=== PATIENT | female | born 1970 | race Caucasian/White ===

== ENCOUNTER 2017-10-20 07:32 | Emergency (ER) | payer OTHER ==
--- NOTE | 2017-10-20 08:51 | ED ---
Respiratory - HPI Summary HPI Summary: 46 yr old female with the complaint of dysuria, frequency, urgency of urination. Onset last evening. she feels she has a UTI. She has an IUD. Denies abdominal and back pain. No other complaints. - History of Current Complaint Chief Complaint: [facility]CGU Stated Complaint: URINARY COMPLAINT Time Seen by Provider: 10/20/17 08:24 Pain Intensity: 0 - Allergy/Home Medications Allergies/Adverse Reactions: Allergies Allergy/AdvReac Type Severity Reaction Status Date / Time bacitracin Allergy Rash Verified 10/20/17 08:14 Penicillins Allergy Unknown Verified 10/20/17 08:14 Reaction Details Sulfa (Sulfonamide Allergy Rash Verified 10/20/17 08:14 Antibiotics) Home Medications: Home Medications Ascorbic Acid TAB* [Vitamin C TAB*] 500 mg PO DAILY 10/20/17 [History Confirmed 10/20/17] Calcium 600mg 1 tab PO DAILY 10/20/17 [History Confirmed 10/20/17] Diclofenac Sodium EC TAB* [Voltaren EC TAB*] 75 mg PO DAILY 10/20/17 [History Confirmed 10/20/17] Etanercept [Enbrel] 50 mg SQ WEEKLY 10/20/17 [History Confirmed 10/20/17] Multivitamins/Minerals TAB* [Theragran/minerals TAB*] 1 tab PO DAILY 10/20/17 [ History Confirmed 10/20/17] Omeprazole CAP* [Prilosec CAP* 20 MG] 10 mg PO 1700 10/20/17 [History Confirmed 10/20/17] PMH/Surg Hx/FS Hx/Imm Hx - Surgical History Surgery Procedure, Year, and Place: breast reduction; lymph nodes removed Infectious Disease History: Yes Infectious Disease History: Denies: Traveled Outside the [place] in Last 30 Days - Family History Known Family History: Positive: None - Social History Lives: With Family Alcohol Use: Rare Substance Use Type: Reports: None Smoking Status (MU): Former Smoker Review of Systems Constitutional: Negative Eyes: Negative Negative: Abdominal Pain, Vomiting, Nausea Positive: dysuria, frequency, urgency. Negative: flank pain, hematuria, incontinence All Other Systems Reviewed And Are Negative: Yes Physical Exam Triage Information Reviewed: Yes Vital Signs On Initial Exam: Initial Vitals Temp Pulse Resp BP Pulse Ox 98.7 F 77 18 133/85 99 10/20/17 08:05 10/20/17 08:05 04/16/18 08:05 10/20/17 08:05 10/20/17 08:05 Vital Signs Reviewed: Yes Appearance: Positive: Well-Appearing, No Pain Distress Skin: Positive: Warm, Skin Color Reflects Adequate Perfusion Head/Face: Positive: Normal Head/Face Inspection Eyes: Positive: EOMI ENT: Positive: Normal ENT inspection Neck: Positive: Nontender Respiratory/Lung Sounds: Positive: Clear to Auscultation, Breath Sounds Present Cardiovascular: Positive: RRR. Negative: Murmur Abdomen Description: Negative: CVA Tenderness (R), CVA Tenderness (L) Musculoskeletal: Positive: Strength/ROM Intact Neurological: Positive: Sensory/Motor Intact, Alert, Oriented to Person Place, Time, CN Intact II-III Psychiatric: Positive: Normal - Earnest Coma Scale Best Eye Response: 4 - Spontaneous Best Motor Response: 6 - Obeys Commands Best Verbal Response: 5 - Oriented Coma Scale Total: 15 Diagnostics - Vital Signs Vital Signs Temp Pulse Resp BP Pulse Ox 10/20/17 08:05 98.7 F 77 18 133/85 99 - Laboratory Lab Statement: Any lab studies that have been ordered have been reviewed, and results considered in the medical decision making process. Disposition - Course Course Of Treatment: 46 yr old with urinary symptoms. - Differential Dx - Cardiopulmonary Differential Diagnoses - Cardiopulmonary: Acute Coronary - Diagnoses Provider Diagnoses: UTI (urinary tract infection) Discharge - Sign-Out/Discharge Documenting (check all that apply): Discharge - Discharge Plan Condition: Good Disposition: HOME Prescriptions: Nitrofurantoin Macrocrystals* [Macrodantin*] 100 mg PO BID #10 cap Patient Education Materials: Urinary Tract Infection in Women (ED) Referrals: Shameka Magana MD [Primary Care Provider] - - Billing Disposition and Condition Condition: GOOD Disposition: HOME
== END 2017-10-20 09:17 | disposition home or self-care (01) ==
LOC: UCCORT 07:32
DX: N39.0 Urinary tract infection, site not specified (principal); Z87.891 Personal history of nicotine dependence; Z88.0 Allergy status to penicillin; Z88.3 Allergy status to other anti-infective agents; Z88.2 Allergy status to sulfonamides
CPT/HCPCS: 81003; 87077; 87086; 87186; 99202; G0463

== ENCOUNTER 2018-10-06 07:36 | Emergency (ER) | payer OTHER ==
--- OUTSIDE RECORDS SUMMARY | 2018-10-06 07:49 | XMS REPORT | Continuity of Care Document ---
:1970 Author Organization [facility] Address [address], [place] [id number] Phone Care Team Providers Name Role Phone Anu Ballesteros Unavailable Unavailable Allergies, Adverse Reactions, Alerts Substance Reaction Status Penicillins Active Sulfa (Sulfonamide Antibiotics) Active Medications Medication Instructions Dosage Effective Dates Status Comments (start - stop) DICLOFENAC SOD EC TAKE ONE TABLET BY 75 MG - Active 75 MG TAB MOUTH EVERY DAY NEEDED ENBREL 50 MG/ML INJECT 50MG - Active SURECLICK SYR SUBCUTANEOUSLY ONCE A WEEK trazodone 50 mg take 0.5 Tablet 25 MG - Active tablet (25MG) by oral route every day at bedtime Prilosec 10 mg Cap take 1 Capsule (10MG) 10 MG - Active by oral route every day before a meal UNKNOWN MEDICATION IUD - Active multivitamin Tab take 1 tablet by oral - Active route every day with food calcium 500 mg Tab take by Oral route 2 - Active times every day OTC SUPPLEMENTS Vitamin C - Active diclofenac sodium take 1 tablet by oral 75 MG - No Longer 75 mg route every day prn Active tablet,delayed release Problems Condition Effective Dates (start Clinical Status Comments - stop) Other psoriatic arthropathy Psoriasis, unspecified Other rn long term care (current) drug therapy Other psoriatic arthropathy Psoriasis, unspecified Other rn long term care (current) drug therapy Other psoriatic arthropathy Psoriasis Other [facility] (current) drug therapy Other psoriatic arthropathy Psoriasis Other [facility] (current) drug therapy Other psoriatic arthropathy Other [facility] (current) drug therapy Other psoriatic arthropathy Psoriasis Other [facility] (current) drug therapy Other psoriatic arthropathy Psoriasis Other [facility] (current) drug therapy Other psoriatic arthropathy Psoriasis Other rn long term care (current) drug therapy Other psoriatic arthropathy Psoriasis Other [facility] (current) drug therapy Other psoriatic arthropathy Psoriasis Other rn long term care (current) drug therapy Other psoriatic arthropathy Psoriasis Other rn long term care (current) drug therapy Other psoriatic arthropathy Psoriasis Other rn long term care (current) drug therapy Other psoriatic arthropathy Psoriasis Other [facility] (current) drug therapy Other psoriatic arthropathy Other rn long term care (current) drug therapy High risk drug - Active Mapped from [facility] Chronic monitoring status Conditions table on 11/14/2014 by the ICD9 to SNOMED Bulk Mapping Utility. The mapped diagnosis code was Therapeutic Drug Monitoring, V58.69, added by Justyna Jiménez NP, with responsible provider Justyna TAPIA. Onset date 07/20/2012; last addressed on 03/21/2014. Psoriasis with - Active Mapped from [facility] Chronic arthropathy Conditions table on 09/13/2014 by the ICD9 to SNOMED Bulk Mapping Utility. The mapped diagnosis code was Psoriatic arthritis, 696.0, added by Justyna Jiménez NP, with responsible provider Justyna TAPIA. Onset date 04/24/2012; last addressed on 03/21/2014. Procedures Procedure Date No information Results Test Name Date and Time Measure Units Reference Range Abnormal Flag Status Comments No information Advance Directives Directive Yes / No Effective Date File Name No information Encounters Encounter Practice Location Reason(s) Diagnoses Date Provider Providers Description For Visit Copied on Encounter [facility]thritis Ar[facility] 2- rebeka Brennan. Jessica Lopez 9 5794 PLLC, 5794 PLLC [facility], [place], [place], [id number], [id number], [place]. [place] tel:[phone] tel:[phone] Arthritis Arthritis Other [facility] psoriatic 9 rebeka Brennan. Provider: Jessica Lopez arthropathyPso 8 5794 [facility], 5794 PLL[facility] Vinod quiñones MD, [facility], [address] [place] [address], er [facility] [place], [address] [place], (current) drug [place], [address], [place], therapy [id number], [place], [id number], [place], [address]. [place] tel:+[phone] tel:+3154 tel:[phone] [id number] lting Provider: Alicia Mills MD, [address] [place] [address], [address]. tel:[phone] ring Provider: Clyde Muhammad, [address] [place], [address]. tel:[phone] Arthritis Arthritis Oct-2 [facility] 3 rebekadaryl Brennan. Jessica Lopez 8 5794 PLLC, 5794 PLLC [facility], [place], [place], [place], [id number], [id number], [place]. [place] tel:[phone] tel:[phone] Arthritis Arthritis Other Sep-2 [facility] psoriatic rebekadaryl Brennan. Provider: Jessica Lopez arthropathyPso 8 5794 [facility], 5794 PLL[facility] Vinod quiñones MD, [facility], [address] [place] [address], er rn long term care [place], [address] [place], (current) drug [place], [address], [place], [place] [id number], [place], [id number], [place], [address]. [place] tel:+[phone] tel:+[phone] tel:[phone] [id number] lting Provider: Alicia Mills MD, [address] [place] [address], [address]. tel:[phone] ring Provider: Clyde Muhammad, [address] [place], [address]. tel:[phone] Arthritis Arthritis Other Danish-1 [facility] psoriatic rebekadaryl Brennan. Provider: Jessica Lopez arthropathyPso 8 5794 [facility], 5794 PLLC Kristy Wilde MD, [facility], [address] [place] [address], (current) drug [place], [address] [place], therapy [place], [address], [place], [id number], [place], [id number], [place], [address]. [place] tel:+[phone] tel:+ tel:[phone] [id number] lting Provider: Alicia Mills MD, [address] [place] [address], [place], [address]. tel:[phone] ring Provider: Clyde Muhammad, [address] [place], [address]. tel:[phone] Arthritis Arthritis Other Mar-1 [facility] psoriatic 9 rebekadaryl Brennan. Provider: Jessica Lopez arthropathyPso 8 5794 [facility], 5794 PLLC [facility] Vinod Wilde MD, [facility], [address] [place] [address], (current) drug [place], [address] [place], therapy [place], [address], [place], [id number], [place], [id number], [place], [address]. [place] tel:+[phone] tel:+315 tel:[phone] [id number] lting Provider: Alicia Mills MD, [address] [place] [address], [address]. tel:[phone] ring Provider: Clyde Muhammad, [address] [place], [address]. tel:[phone] Arthritis Arthritis Other Dec-1 [facility] psoriatic rebekadaryl Brennan. Provider: Jessica Lopez arthropathyOth 7 5794 [facility], 5794 PLLC er [facility] Vinod Wilde MD, [facility] (current) drug [place], [address] [place] [address], therapy [place], [address] [place], [place], [address], [place], [id number], [place], [id number], [place], [address]. [place] tel:+[phone] tel:+315 tel:[phone] [id number] lting Provider: Alicia Mills MD, [address] [address], [place], [address]. tel:[phone] ring Provider: Clyde Muhammad [address], [place], [address]. tel:[phone] Arthritis Arthritis Other Sep-1 [facility] psoriatic 8 rebekadaryl Brennan. Provider: Jessica Lopez arthropathyPso 7 5794 [facility], 5794 PLLC riasisCynthia Wilde MD, [facility], [address] [place] [address], (current) drug [place], [address] [place], therapy [place], [address], [place], [id number], [place], [id number], [place], [address]. [place] tel:+[phone] tel:+[phone] tel:[phone] [id number] lting Provider: Alicia Mills MD, [address] [address], [place], [address]. tel:[phone] ring Provider: Clyde Muhammad, [address], [place], [address]. tel:[phone] Arthritis Arthritis Other Danish-2 [facility] psoriatic 6 rebekadaryl Brennan. Provider: Jessica Lopez arthropathyPso 7 5794 [facility], 5794 PLLC riasisCynthia Wilde MD, [facility], [address] [place] [address], (current) drug [place], [address] [place], therapy [place], [address], [place], [id number], [place], [id number], [place], [address]. [place] tel:+[phone] tel:+[phone] tel:[phone] [id number] lting Provider: Alicia Mills, [address] [address], [place], [place]. tel:[phone] ring Provider: Clyde Muhammad [address], [place], [address]. tel:[phone] Arthritis Arthritis Other Mar-2 [facility] psoriatic rebeka Anu. Provider: Jessica Lopez arthropathyPso 7 5794 [facility], 5794 PLLC riasisCynthia Wilde MD, [facility], [address] [place] [address], (current) drug [place], [address] [place], therapy [place], [address], [place], [id number], [place], [id number], [place], [address]. [place] tel:[phone] tel:+[phone] tel:[phone] [id number] lting Provider: Alicia Mills, [address] [place] [address], [place], [place]. tel:[phone] ring Provider: Clyde Muhammad, [address], [address]. tel:[phone] Arthritis Arthritis Other Dec-2 [facility] rebeka Anu. Provider: Jessica Lopez arthropathyPso 6 5794 [facility], 5794 PLLC riasisCynthia Wilde MD, [facility], [address] [place] [address], (current) drug [place], [address] [place], therapy [place], [address], [place], [id number], [place], [id number], [place], [address]. [place] tel:+[phone] tel:+[phone] tel:[phone] [id number] lting Provider: Alicia Mills, [address] [address], [place], [place]. tel:[phone] ring Provider: [place], [address]. tel:[phone] Arthritis Arthritis Other Sep-2 [facility] rebeka Anu. Provider: Jessica Lopez arthropathyPso 6 5794 [facility], 5794 PLLC riaAlbania Wilde MD, [facility], [address] [place] [address], (current) drug [place], [address] [place], therapy [place], [address], [place], [id number], [place], [id number], [place], [address]. [place] tel:+[phone] tel:+ tel:[phone] [id number] lting Provider: Alicia Mills, [address] [address], [place], [place]. tel:[phone] ring Provider: Clyde Muhammad, [address] [place], [address]. tel:[phone] Arthritis Arthritis Other Danish-2 [facility] psoriatic 2 rebekadaryl Brennan. Provider: Jessica Lopez arthropathyPso 6 5794 [facility], 5794 PLLC Kristy Wilde MD, [facility], [address] [place] [address], (current) drug [place], [address] [place], therapy [place], [address], [place], [id number], [place], [id number], [place], [address]. [place] tel:+[phone] tel:+[phone] tel:[phone] [id number] lting Provider: Alicia Amayaon, [address] [address], [place], [place]. tel:[phone] ring Provider: Clyde Muhammad, [address] [place], [address]. tel:[phone] Arthritis Arthritis Other Mar-2 [facility] psoriatic 3 rebekadaryl Brennan. Provider: Jessica Lopez arthropathyPso 6 5794 [facility], 5794 PLLC Kristy Wilde MD, [facility], [address] [place] [address], (current) drug [place], [address] [place], therapy [place], [address], [place], [id number], [place], [id number], [place], [address]. [place] tel:+[phone] tel:+315 tel:[phone] [id number] lting Provider: Alicia Mills, [address] [address], [place], [place]. tel:[phone] ring Provider: Clyde Muhammad, [address], [place], [address]. tel:[phone] Arthritis Arthritis Other Jun- [facility] psoriatic 3 rebeka Brennan. Provider: Jessica Lopez arthropathyPso 5 5794 [facility], 5794 [facility] Wil[facility], [facility], [address] [place] [address], (current) drug [place], [address] [place], therapy [place], [address], [place], [id number], [place], [id number], [place], [address]. [place] tel:+[phone] tel:+[phone] tel:[phone] [id number] lting Provider: Alicia Mills, [address] [address], [place], [place]. tel:[phone] ring Provider: Clyde Muhammad, [address], [place], [address]. tel:[phone] Arthritis Arthritis Other Alyx [facility] psoriatic [place]. 5794 Provider: Jessica Lopez arthropathyOth 5 [facility]yn [facility], 5794 [facility]C [facility], [facility] (current) drug [place], [address] [facility], therapy [place], [address] [place], [id number], [address], [place], [place]. [place], [id number], tel:[phone] [place], [address]. [place] [id number] tel:+[phone] tel:[phone] [id number] lting Provider: Alicia Mills, [address] [address], [place], [place]. tel:[phone] ring Provider: Clyde Muhammad, [address], [place], [address]. tel:[phone] Arthritis Arthritis Dec- Jessy BEAM WARPER-C Consulting [facility] [place]. 5794 Provider: Associates Associates 4 [facility] Jadyn [facility], 5794 [facility] Andry Perera MD, [facility] [place], [address], [place], [address] [place], [id number], [address], [place], [place]. [place], [id number], tel:[phone] [place], [address]. [place] [address] tel:+[phone] tel:[phone] [id number] ring Provider: Clyde Muhammad, [address], [place], [address]. tel:[phone] Arthritis Arthritis Jun- Alyx ARCHER [facility]. 5794 Provider: Associates Jessica 3 [facility], 5794 [facility], 6 [facility] [place], [address], [place], [place], [place], [place], [id number], [place], [address]. [place], [place]. tel:[phone], tel:[phone] [place] [address] tel:[phone] Arthritis Arthritis Jessy BEAM WARPER-C [facility] 0 [place]. 5794 Provider: Associates Associates 3 [facility] Jadyn [facility], 5794 [facility] Andry Perera MD, [facility] [place], [address], [place], [address] [place], [id number], [address], [place], [place]. [place], [id number], tel:[phone] [place], [address]. [place] [address] tel:+[phone] tel:[phone] [id number] ring Provider: Clyde Muhammad, [address], [place], [address]. tel:[phone] Arthritis Arthritis Jessy BEAM WARPER-C Referring [facility] [place]. 5794 Provider: [facility] 3 [facility], 5794 [facility] Jb Perera, [address] [place], [address], [place], [place], [place], [place], [id number], [place], [address]. [place], [place]. tel:[phone], tel:[phone] [place] 873180 tel:[phone] Arthritis Arthritis Apr- Jessy BEAM WARPER-C Referring [facility] Health 9-201 [place]. 5794 Provider: Jessica Associates 2 [facility], 5794 [facility], 6 [facility] [place], [address], [place], [place], [place], [place], [id number], [place], [address]. [place], [place]. tel:[phone], tel:[phone] [place] 954953 tel:[phone] Arthritis Arthritis Zira Referring Health Health 0-201 BEAM WARPER-C Provider: Jessica Lopez 2 Leticia. 310 [facility], 5794 [facility] S [place] [facility], [address] [facility] [facility] [address], [address], [place], [place], [place], [place], [address]. [place], [id number], tel:[phone], [place]. [address] [place] tel:+[phone] tel:[phone] Arthritis Arthritis Jan- Alyx [facility] Health 4-201 [place]. 5794 [facility] 1 [facility], 5794 [facility], [facility] [place], [place], [place], [place], [id number], [place], [place]. [id number], tel:[phone] [place] 408744 tel:[phone] Arthritis Arthritis Apr-0 Jessy BEAM WARPER-C Referring [facility] Health 8-201 [place]. 5794 Provider: Associates Associates 1 [facility], 5794 PLLC [place], [facility], 6 [facility] [place], [address], [place], [place], [place], [place], [id number], [place], [address]. [place], [place]. tel:[phone], tel:[phone] tel:[phone] Family History Family Member Diagnosis Age At Onset Mother Psoriasis Father Crohn's disease Father Myocardial infarction Immunizations Vaccine Date Status Comments Influenza, injectable, MDCK, administered Note: approx ; Source : Other Flucelvax Quad 2017-2018Y Provider Influenza, injectable, administered Note: approx ; Source: Other quadrivalent, split virus, 18 Provider years or older Afluria Quad 1166-2348 Influenza, injectable, administered Note: approx ; Source: Other trivalent, split virus, 4 Provider years and older, Fluvirin 0064-0215 Influenza, split virus, administered Source: New Immunization Record injectable, 3 years and older Fluvirin 7369-7782 Influenza virus vaccine, administered Source: Other Provider Injection Influenza virus vaccine, administered Source: Other Provider Injection Not receiving Zoster administered Source: New Immunization Record pneumo (2 yrs or older) administered Source: Other Provider (PPV23) Influenza virus vaccine, administered Source: Other Provider Injection patient unaware administered Source: Other Provider Payers Payer name Insurance type Covered libertarian ID Authorization(s) [employer] [place] [id number] [employer] [id number] Social History Type Description Quantity Date Captured Comments Sex Female Vital Signs Date / Height Weight BMI Pulse Blood Temperature Respiratory Body Head BMI Pulse Inhaled Time: Rate Pressure Rate Surface Circumference percentile Ox Ox Area No information Chief Complaint And Reason For Visit No information Reason For Referral Reason For Referral No information Plan Of Treatment Date Type Action Status Appointment Tatiana Vazquez BOOKED History Of Present Illness Encounter Date Complaint History Of Present Illness No information Functional Status Date Functional Assessment No information Medications Administered Medication Instructions Dosage Effective Dates (start - stop) Status Comments No information Instructions Date Instruction Additional Information Pt. not exposed to someone in penitentiary nor traveled out of the country; no concern for TB screening. Avoid live vaccines Discussed importance of holding DMARDs/ biologics if patient develops an infection and to notify the treating physician Labs ordered to check disease activity. Labs ordered to check blood counts, liver and kidney functions to monitor safety of medication. continue same medication plan call if symptoms worsen Labs ordered to check disease activity. Labs ordered to check blood counts, liver and kidney functions to monitor safety of medication. continue same medication plan call if symptoms worsen Avoid live vaccines Discussed importance of holding DMARDs/ biologics if patient develops an infection and to notify the treating physician continue same medication plan call if symptoms worsen Avoid live vaccines Discussed importance of holding DMARDs/ biologics if patient develops an infection and to notify the treating physician Labs ordered to check disease activity. Labs ordered to check blood counts, liver and kidney functions to monitor safety of medication. Avoid live vaccines Discussed importance of holding DMARDs/ biologics if patient develops an infection and to notify the treating physician Labs ordered to check disease activity. Labs ordered to check blood counts, liver and kidney functions to monitor safety of medication. continue same medication plan call if symptoms worsen continue same medication plan call if symptoms worsen Avoid live vaccines Discussed importance of holding DMARDs/ biologics if patient develops an infection and to notify the treating physician Labs ordered to check disease activity. Labs ordered to check blood counts, liver and kidney functions to monitor safety of medication. Avoid live vaccines Discussed importance of holding DMARDs/ biologics if patient develops an infection and to notify the treating physician Labs ordered to check disease activity. Labs ordered to check blood counts, liver and kidney functions to monitor safety of medication. Daily range of motion exercises for symptomatic joints recommended. continue same medication plan call if symptoms worsen Avoid live vaccines Discussed importance of holding DMARDs/ biologics if patient develops an infection and to notify the treating physician Labs ordered to check disease activity. Labs ordered to check blood counts, liver and kidney functions to monitor safety of medication. Daily range of motion exercises for symptomatic joints recommended. continue same medication plan call if symptoms worsen Avoid live vaccines Discussed importance of holding DMARDs/ biologics if patient develops an infection and to notify the treating physician Labs ordered to check disease activity. Labs ordered to check blood counts, liver and kidney functions to monitor safety of medication. Daily range of motion exercises for symptomatic joints recommended. continue same medication plan call if symptoms worsen Avoid live vaccines Discussed importance of holding DMARDs/ biologics if patient develops an infection and to notify the treating physician Labs ordered to check disease activity. Labs ordered to check blood counts, liver and kidney functions to monitor safety of medication. Daily range of motion exercises for symptomatic joints recommended. call if symptoms worsen
--- OUTSIDE RECORDS SUMMARY | 2018-10-06 07:49 | XMS REPORT | Continuity of Care Document ---
:1970 Author Organization [facility] Address [address], [place] [id number] Phone Care Team Providers Name Role Phone Anu Ballesteros Unavailable Unavailable Allergies, Adverse Reactions, Alerts Substance Reaction Status Penicillins Active Sulfa (Sulfonamide Antibiotics) Active Medications Medication Instructions Dosage Effective Dates Status Comments (start - stop) DICLOFENAC SOD EC 75 TAKE ONE TABLET BY 75 MG - Active MG TAB MOUTH EVERY DAY NEEDED ENBREL 50 MG/ML INJECT 50MG - Active SURECLICK SYR SUBCUTANEOUSLY ONCE A WEEK trazodone 50 mg take 0.5 Tablet (25MG) 25 MG - Active tablet by oral route every day at bedtime Prilosec 10 mg Cap take 1 Capsule (10MG) 10 MG - Active by oral route every day before a meal UNKNOWN MEDICATION IUD - Active OTC SUPPLEMENTS Vitamin C - Active calcium 500 mg Tab take by Oral route 2 - Active times every day multivitamin Tab take 1 tablet by oral - Active route every day with food Problems Condition Effective Dates (start Clinical Status Comments - stop) Other psoriatic arthropathy Psoriasis, unspecified Other [facility] (current) drug therapy Other psoriatic arthropathy Psoriasis, 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 Other psoriatic arthropathy 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, 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 Other psoriatic arthropathy Psoriasis Other [facility] (current) drug therapy Other psoriatic arthropathy Psoriasis 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 Other psoriatic arthropathy 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 Other psoriatic arthropathy Psoriasis 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 Other psoriatic arthropathy Psoriasis 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 Other psoriatic arthropathy Psoriasis Other [facility] (current) drug therapy Other psoriatic arthropathy Psoriasis Other [facility] (current) drug therapy Other psoriatic arthropathy Psoriasis 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 The mapped diagnosis code was Therapeutic Drug Monitoring, V58.69, added by Justyna Jiménez NP, with responsible provider Justyna TAPIA. Onset date 07/20/2012; last addressed on 03/21/2014. Psoriasis with - Active Mapped from [facility] Chronic arthropathy Conditions table on 09/13/2014 by the ICD9 to SNOMED Bulk Mapping Utility. The mapped diagnosis code was Psoriatic arthritis, 696.0, added by Justyna Jiménez NP, with responsible provider Justyna TAPIA. Onset date 04/24/2012; last addressed on 03/21/2014. Procedures Procedure Date ROUTINE VENIPUNCTURE COMPLETE CBC W/AUTO DIFF WBC RBC SED RATE, AUTOMATED C-REACTIVE PROTEIN ASSAY OF CREATININE TRANSFERASE (AST) (SGOT) ALANINE AMINO (ALT) (SGPT) ASSAY OF SERUM ALBUMIN OFFICE/OUTPATIENT VISIT, EST Results Test Name Date and Time Measure Units Reference Range Abnormal Flag Status Comments Panel Description: CBC Final WBC 13:09:00 7.9 10 3.7-10.1 Final RBC 13:09:00 4.22 10 3.50-5.50 Final HGB 13:09:00 12.8 g/dL 12.0-16.0 Final HCT 13:09:00 39.4 % 36.0-48.0 Final MCV 13:09:00 93.4 fL 80.0-100.0 Final MCH 13:09:00 30.4 pg 26.0-34.0 Final MCHC 13:09:00 32.6 g/dL 31.0-37.0 Final RDW 13:09:00 11.7 % 10.0-15.0 Final PLATELETS 13:09:00 336 10 150-500 Final MPV 13:09:00 5.4 fL 6.0-10.0 L Final MELISSA# 13:09:00 4.40 10 2.10-8.00 Final LYM# 13:09:00 2.40 10 1.00-5.00 Final MONO# 13:09:00 0.68 10 0.10-1.00 Final EOS# 13:09:00 0.3 10 0.0-0.5 Final BASO# 13:09:00 0.1 10 0.0-0.2 Final MELISSA% 13:09:00 56.1 % 50.0-80.0 Final LYM% 13:09:00 30.6 % 25.0-50.0 Final MONO% 13:09:00 8.6 % 2.0-10.0 Final EOS% 13:09:00 3.6 % 0.0-5.0 Final BASO% 13:09:00 1.2 % 0.0-4.0 Final Panel Description: ESR Final ESR 13:09:00 7 mm/Hr 0-20 Final Panel Description: ALBUMIN Final ALB 13:09:00 3.7 g/dL 3.4-4.4 Final Panel Description: ALT Final ALT 13:09:00 32 U/L 30-65 Final Panel Description: AST Final AST 13:09:00 22 U/L 15-37 Final Panel Description: CREATININE Final CREATININE 13:09:00 0.9 mg/dL 0.6-1.2 Final eGFR 13:09:00 >60 mL/min/1.73m Final Panel Description: CRP Final CRP 13:09:00 <0.2 mg/dL 0.2-1.0 L Final Advance Directives Directive Yes / No Effective Date File Name No information Encounters Encounter Practice Location Reason(s) Diagnoses Date Provider Providers Description For Visit Copied on Encounter OFFICE/OUTPA Arthritis Arthritis Psoriatic Other Sep- [employer] TIENT VISIT, [facility] Arthritis psoriatic rebeka Brennan. Provider : LEONARD Lopez (chief arthropathyPso 9 [phone] [facility], 5[facility] complaint) Vinod quiñones MD, [facility], [address] [place] [address], er [facility] [place], [address] [place], (current) drug [place], [address], [place], therapy [id number], [place], [id number], [place], [address]. [place] tel:[phone] tel:[phone] tel:[phone] [id number] lting Provider: Alicia Mills MD, [address] [facility], [place], [address]. tel:[phone] Provider: Clyde Muhammad, [address] [place] [address], [address]. tel:[phone] Arthritis Arthritis Sep- [facility] rebeka Brennan. Jessica Lopez 9 5794 PLLC, 5794 PLLC [facility], [place], [place], [place], [id number], [id number], [place]. [place] tel:[phone] tel:[phone] Arthritis Arthritis Other [employer] [facility] psoriatic rebeka Brennan. Provider: Jessica Lopez arthropathyPso 8 [phone], 5794 [facility]C Vinod quiñones MD, [facility], [address] [place] [address], er [employer] [place], [address] [place], (current) drug [place], [address], [place], [place] [id number], [place], [id number], [place], [address]. [place] tel:[phone] tel:[phone] tel:[phone] [id number] lting Provider: Alicia Mills MD, [address] [place] [address], [place], [address]. tel:[phone] ring Provider: Clyde Muhammad, [address] [place], [address]. tel:[phone] Arthritis Arthritis Oct-2 [facility] 3- rebeka Brennan. [facility] 8 5794 PLLC, 5794 PLLC [facility], [place], [place], [place], [id number], [id number], [place]. [place] tel:[phone] tel:[phone] Arthritis Arthritis Other Sep-2 [facility] psoriatic rebeka Brennan. Provider: Jessica Lopez arthropathyPso 8 [facility], 5794 PLLC Vinod quiñones MD, [facility], [address] [place] [address], er [facility] [place], [address] [place], (current) drug [place], [address], [place], [place] [id number], [place], [id number], [place], [address]. [place] tel:[phone] tel:[phone] tel:[phone] [id number] [id number] lting Provider: Alicia Mills MD, [address] [place] [address], [place], [address]. tel:[phone] ring Provider: Clyde Muhammad, [address] [place], [address]. tel:[phone] Arthritis Arthritis Other Danish-1 [employer] [facility] psoriatic rebeka Brennan. Provider: Jessica Lopez arthropathyPso 8 [phone], 5794 PLLC Kristy Wilde MD, [facility], [address] [place] [address], (current) drug [place], [address] [place], [place], [address], [place], [id number], [place], [id number], [place], [address]. [place] tel:[phone] tel:[phone] tel:[phone] [id number] lting Provider: Alicia Mills MD, [address] [place] [address], [address]. tel:[phone] ring Provider: Clyde Muhammad, [address] [place], [address]. tel:[phone] Arthritis Arthritis Other Mar- [employer] [facility] psoriatic 9 rebeka Anu. Provider: Jessica Lopez arthropathyPso 8 [facility], 5794 PLLC [facility] Vinod Wilde MD, [facility], [address] [place] [address], (current) drug [place], [address] [place], therapy [place], [address], [place], [id number], [place], [id number], [place], [address]. [place] tel:[phone] tel:[phone] tel:[phone] [id number] lting Provider: Alicia Mills MD, [address] [place] [address], [place], [address]. tel:[phone] ring Provider: Clyde Muhammad, [address] [place], [address]. tel:[phone] Arthritis Arthritis Other Dec- [employer] [facility] psoriatic rebekadaryl Sanzi. Provider: Jessica Lopez arthropathyOth 7 5[facility], 5794 PLLC er [facility] Vinod Wilde MD, [facility] (current) drug [place], [address] [facility], therapy [place], [address] [place], [place], [address], [place], [id number], [place], [id number], [place], [address]. [place] tel:[phone] tel:[phone] tel:[phone] [id number] [id number] lting Provider: Alicia Mills MD, [address] [facility] 100, [place], [address]. tel:[phone] ring Provider: Clyde Muhammad, [address], [place], [address]. tel:[phone] Arthritis Arthritis Other Sep-1 [employer] [facility] psoriatic rebekadaryl Brennan. Provider: Jessica Lopez arthropathyPso 7 [phone], 5794 PLLC riasisCynthia Wilde MD, [facility], [address] [place] [address], (current) drug [place], [address] [place], therapy [place], [address], [place], [id number], [place], [id number], [place], [address]. [place] tel:[phone] tel:[phone] tel:[phone] [id number] [id number] lting Provider: Alicia Mills MD, [address] [place] [address], [place], [address]. tel:[phone] ring Provider: Clyde Muhammad, [address] [place], [address]. tel:[phone] Arthritis Arthritis Other Danish-2 [employer] [facility] psoriatic rebeka Anu. Provider: Jessica Lopez arthropathyPso 7 5794 [facility], 5794 PLLC riasisCynthia Wilde MD, [facility], [address] [place] [address], (current) drug [place], [address] [place], therapy [place], [address], [place], [id number], [place], [id number], [place], [address]. [place] tel:[phone] tel:[phone] tel:[phone] [id number] lting Provider: Alicia Mills, [address] [address], [place], [place]. tel:[phone] ring Provider: Clyde Muhammad, [address], [place], [address]. tel:[phone] Arthritis Arthritis Other Mar-2 [employer] [facility] psoriatic rebeka Anu. Provider: Jessica Lopez arthropathyPso 7 5794 [facility], 5794 PLLC riasisCynthia Wilde MD, [facility], [address] [place] [address], (current) drug [place], [address] [place], therapy [place], [address], [place], [id number], [place], [id number], [place], [address]. [place] tel:[phone] tel:[phone] tel:[phone] lting Provider: Alicia Mills, [address] [address], [place], [place]. tel:[phone] ring Provider: Clyde Muhammad, [address], [address]. tel:[phone] Arthritis Arthritis Other Dec-2 [employer] [facility] rebeka Brennan. Provider: Jessica Lopez arthropathyPso 6 5794 [facility], 5794 PLLC riasisCynthia Wilde MD, [facility], [address] [place] [address], (current) drug [place], [address] [place], therapy [place], [address], [place], [id number], [place], [id number], [place], [address]. [place] tel:[phone] tel:[phone] tel:[phone] [id number] [id number] lting Provider: Alicia Mills, [address] [address], [place]. tel:[phone] ring Provider: Clyde Muhammad, [address], [address]. tel:[phone] Arthritis Arthritis Other Sep-2 [employer] [facility] rebeka Brennan. Provider: Jessica Lopez arthropathyPso 6 5794 [facility], 5794 PLLC riasisCynthia Wilde MD, [facility], [address] [facility] [place], (current) drug [place], [address] [place], therapy [place], [address], [place], [id number], [place], [id number], [place], [address]. [place] tel:[phone] tel:+[phone] tel:[phone] [id number] lting Provider: Alicia Mills, [address] tel:[phone] ring Provider: Clyde Muhammad, [address] [place], [address]. tel:[phone] Arthritis Arthritis Other Danish-2 [employer] [facility] psoriatic 2- rebeka Anu. Provider: Jessica Lopez arthropathyPso 6 5794 [facility], 5794 PLLC riasisCynthia Wilde MD, [facility], [address] [place] [address], (current) drug [place], [address] [place], therapy [place], [address], [place], [id number], [place], [id number], [place], [address]. [place] tel:+[phone] tel:[phone] tel:[phone] lting Provider: Alicia Mills, [address] tel:[phone] ring Provider: Clyde Muhammad, [address] [place], [address]. tel:[phone] Arthritis Arthritis Other Mar-2 [employer] [facility] psoriatic 3- rebekadaryl Brennan. Provider: Jessica Lopez arthropathyPso 6 5794 [facility], 5794 PLLC riasisCynthia Wilde MD, [facility], [address] [place] [address], (current) drug [place], [address] [place], therapy [place], [address], [place], [id number], [place], [id number], [place], [address]. [place] tel:[phone] tel:+[phone] tel:[phone] [id number] lting Provider: Alicia Mills, [address] [address], [place], [place]. tel:[phone] ring Provider: Clyde Muhammad, [address], [place], [address]. tel:[phone] Arthritis Arthritis Other Jun- [employer] [facility] psoriatic 3 rebeka Brennan. Provider: Jessica Lopez arthropathyPso 5 5794 [facility], 5794 PLLC riasisCynthia Wilde MD, [facility], [address] [facility], (current) drug [place], [address] [place], therapy [place], [address], [place], [id number], [place], [id number], [place], [address]. [place] tel:+[phone] tel:+[phone] tel:[phone] [id number] lting Provider: Alicia Mills, [address] [address], [place], [place]. tel:[phone] ring Provider: Clyde Muhammad, [address], [place], [address]. tel:[phone] Arthritis Arthritis Other Alyx [employer] [facility] psoriatic [place]. 0294 Provider: Jessica Lopez arthropathyOth 5 [facility], 5794 PLLC [facility], Andry ARCHER, [facility] (current) drug [place], [address] [facility] [place], therapy [place], [address] [place], [id number], [address], [place], [place]. [place], [id number], tel:[phone] [place], [address]. [place] [id number] tel:[phone] tel:[phone] [id number] lting Provider: Alicia Mills, [address] [address], [place], [place]. tel:[phone] ring Provider: Clyde Muhammad, [address], [place], [address]. tel:[phone] Arthritis Arthritis Jun- Jessy LICENSED THERAPIST-C Consulting [facility] [place]. 8694 Provider: Jessica Lopez 4 [facility], 5794 [facility] Andry Perera MD, [facility] [place], [address] [place], [place], [address] [place], [id number], [address], [place], [place]. [place], [id number], tel:[phone] [place], [address]. [place] [address] tel:[phone] tel:[phone] [id number] ring Provider: Clyde Muhammad, [address], [place], [address]. tel:[phone] Arthritis Arthritis Dec-0 Alyx ARCHER Referring [facility] 9-201 [facility] [place]. 5794 Provider: Jessica Lopez 3 [facility], 5794 [facility], 6 [facility] [place], [address], [place], [place], [place], [place], [id number], [place], [address]. [place], [place]. tel:[phone], tel:[phone] [place] [address] tel:[phone] Arthritis Arthritis Danish- Jessy LICENSED THERAPIST-C [facility] 0-201 [place]. 5794 Provider: Jessica Lopez 3 [facility], 5794 [facility] Andry Perera MD, [facility] [place], [address] [place], [place], [address] [place], [id number], [address], [place], [place]. [place], [id number], tel:[phone] [place], [address]. [place] [address] tel:+ tel:[phone] [id number] ring Provider: Clyde Muhammad, [address], [place], [address]. tel:[phone] Arthritis Arthritis Jose- Jessy LICENSED THERAPIST-C Referring [facility] 4-201 [place]. 5794 Provider: Jessica Lopez 3 [facility], 5794 [facility], 6 [facility] [place], [address], [place], [place], [place], [place], [id number], [place], [address]. [place], [place]. tel:[phone], tel:[phone] [place] 3[address]84 tel:[phone] Arthritis Arthritis Jessy LICENSED THERAPIST-C [facility] 9 [place]. 5794 Provider: Jessica Lopez 2 [facility], 5794 [facility], [facility], 6 [facility] [place], [address], [place], [place], [place], [place], [id number], [place], [address]. [place], [place]. tel:[phone], tel:[phone] [place] 90[address]31 tel:[phone] Arthritis Arthritis [facility] Referring [facility] 0-201 LICENSED THERAPIST-C Provider: Jessica Lpoez 2 Leticia. 310 [facility], 5794 PLL S Chuck [facility], [address] [facility] [address], [address], [place], [place], [place], [place], [address]. [place], [id number], tel:[phone], [place]. [address] [place] tel:+ tel:[phone] Arthritis Arthritis Alyx [facility] [place]. 5794 [facility] 1 [facility], 5794 [facility], [facility] [place], [place], [place], [place], [id number], [place], [place]. [id number], tel:+ [phone] tel:[phone] Arthritis Arthritis Oct-0 Jessy LICENSED THERAPIST-C Referring [facility] 8-201 [place]. 5794 Provider: [facility] 1 [facility], 5794 [facility], [facility], [address] [place] [address] [place], [address], [place], [place], [place], [place], [id number], [place], [address]. [place], [place]. tel:[phone], tel:[phone] [place] 356[address] tel:[phone] Family History Family Member Diagnosis Age At Onset Mother Psoriasis Father Crohn's disease Father Myocardial infarction Immunizations Vaccine Date Status Comments Influenza, injectable, MDCK, administered Note: approx ; Source : Other Flucelvax Quad 2017-2018Y Provider Influenza, injectable, administered Note: approx ; Source: Other quadrivalent, split virus, 18 Provider years or older Afluria Quad 4648-4277 Influenza, injectable, administered Note: approx ; Source: Other trivalent, split virus, 4 Provider years and older, Fluvirin 6198-2357 Influenza, split virus, administered Source: New Immunization Record injectable, 3 years and older Fluvirin 6666-5335 Influenza virus vaccine, administered Source: Other Provider Injection Influenza virus vaccine, administered Source: Other Provider Injection Not receiving Zoster administered Source: New Immunization Record pneumo (2 yrs or older) administered Source: Other Provider (PPV23) Influenza virus vaccine, administered Source: Other Provider Injection patient unaware administered Source: Other Provider Payers Payer name Insurance type Covered green party ID Authorization(s) [employer] [id number] [employer] [id number] Social History Type Description Quantity Date Captured Comments Alcohol Use Details Caffeine Use Details No Tobacco Use Status Ex-cigarette smoker Smoking Status Former smoker Smoking Tobacco Use Cigarette: No Details Available Cigarette: No Details Available Details Sex Female Vital Signs Date / Height Weight BMI Pulse Blood Temperature Respiratory Body Head BMI Pulse Inhaled Time: Rate Pressure Rate Surface Circumference percentile Ox Ox Area 62.00 167.00 30.5 146/2019 in lbs 4 mm[Hg] 12:42 kg/m PM eter (2) Chief Complaint And Reason For Visit Most recent encounter only, dated '09/22/2018 13:00'. Psoriatic Arthritis (chief complaint). Description: The pain severity is 1/10. Patient is experiencing generalized morning stiffness for a few minutes. Patient denies having abdominal pain, infection, loss of appetite, eye symptoms, fever, fatigue, oral ulcers (mouth sores), dry mouth, weight loss and shortness of breath. Reason For Referral Reason For Referral No information Plan Of Treatment Date Type Action Status Appointment Tatiana Vazquez BOOKED History Of Present Illness Encounter Date Complaint History Of Present Illness Psoriatic Arthritis The pain severity is 1/10. Patient is experiencing generalized morning stiffness for a few minutes. Patient denies having abdominal pain, infection, loss of appetite, eye symptoms, fever, fatigue, oral ulcers (mouth sores), dry mouth, weight loss and shortness of breath. Functional Status Date Functional Assessment No information Medications Administered Medication Instructions Dosage Effective Dates (start - stop) Status Comments No information Instructions Date Instruction Additional Information Pt. not exposed to someone in [place] nor traveled out of the country; no concern for TB screening. continue same medication plan call if symptoms worsen Avoid live vaccines Discussed importance of holding DMARDs/ biologics if patient develops an infection and to notify the treating physician Labs ordered to check disease activity. Labs ordered to check blood counts, liver and kidney functions to monitor safety of medication. Labs ordered to check disease activity. Avoid live vaccines Discussed importance of holding DMARDs/ biologics if patient develops an infection and to notify the treating physician Labs ordered to check blood counts, liver [...] infection and to notify the treating physician Avoid live vaccines Discussed importance of holding [...] kidney functions to monitor safety of medication. call if symptoms worsen continue same medication plan Daily range of motion exercises for symptomatic joints recommended. Labs ordered to check blood counts, liver and kidney functions to monitor safety of medication. Labs ordered to check disease activity. Discussed importance of holding DMARDs/ biologics if patient develops an infection and to notify the treating physician Avoid live vaccines Discussed importance of holding DMARDs/ biologics if patient develops an infection and to notify the treating physician Labs ordered to check disease activity. Labs ordered to check blood counts, liver and kidney functions to monitor safety of medication. Daily range of motion exercises for symptomatic joints recommended. continue same medication plan Avoid live vaccines call if symptoms worsen Avoid live vaccines Discussed importance of holding DMARDs/ biologics if patient develops an infection and to notify the treating physician Labs ordered to check disease activity. Labs ordered to check blood counts, liver and kidney functions to monitor safety of medication. Daily range of motion exercises for symptomatic joints recommended. continue same medication plan call if symptoms worsen Discussed importance of holding DMARDs/ biologics if patient develops an infection and to notify the treating physician Labs ordered to check disease activity. Labs ordered to check blood counts, liver and kidney functions to monitor safety of medication. Avoid live vaccines Daily range of motion exercises for symptomatic joints recommended. call if symptoms worsen
--- OUTSIDE RECORDS SUMMARY | 2018-10-06 07:50 | XMS REPORT | Continuity of Care Document ---
:1970 External Reference #:[id number] Author Name Shameka Magana MD Address [address] [place] [address] Care Team Providers Name Role Phone Shameka Magana MD Care Team Information Stage Settings Painter Unavailable Shameka Magana MD Primary Care Physician Unavailable Payers Date Identification Numbers Payment Provider Subscriber Policy Number: [id number] Lifetime Benefit Solution Yeison Vazquez Group Number: [id number] PayID: [place] [address] Advance Directives Description No Information Available Problems Date Description Provider Status Onset: 04/20/2015 Psoriasis with arthropathy Digna Edwards PA-C Active Note: [facility] Onset: 06/29/2015 Adult health examination Digna Edwards PA-C Active Note: January 2016 LDL 60 HDL 53 Chol 129 Trig 80. Breast exam WNL, mammogram November 2015 (Chuck). Pap smear November 2014. D Jun 2015. 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 Resolved Resolved: 08/29/2017 Onset: 08/27/2017 Acute upper respiratory infection Camilo Muller M.D. Resolved Resolved: 08/29/2017 Family History Date Family Member(s) Observation Comments Father Crohn's Disease Mother Psoriasis Social History Type Date Description Comments Sex Unknown Marital Status Lives With Occupation [employer] Work Status Currently Working ETOH Use Occasionally consumes alcohol Tobacco Use Start: Unknown Patient has never smoked Recreational Drug Use Denies Drug Use Smoking Status Reviewed: 09/11/18 Patient has never smoked Allergies, Adverse Reactions, Alerts Date Description Reaction Status Severity Comments 06/29/2015 Penicillins as infant Active 06/29/2015 Sulfa Drugs rash Active 06/29/2015 Chlorthalidone Active 12.5 mg dizziness 12/08/2017 Bacitracin rash Active Medications Medication Date Status Form Strength Qnty SIG Indications Ordering Provider Ciprodex 09/11/ Active Suspension 0.3-0.1% 7.500 4 drops H92.01 [place], 2018 ml in right MD Shameka ear twice a day for 7 days Ascorbic Acid 06/29/ Active Tablets 500mg 1 by Harriet Muhammad mouth [place], every day prn Calcium 500/D 06/29/ Active Chewtabs 500-400mg 60uni 1 by Jb 2014 -Unit ts mouth [place], every day Diclofenac 06/29/ Active Tablets DR 75mg 60tab take 1 Cayden Muhammad 2014 s tablet by [place] mouth twice daily with food Enbrel 06/29/ Active Soln Prefill 50mg/ml as Jb 2014 Syringe directed [place] weekly Multivitamin 06/29/ Active Tablets Adlt 50+ 1 by Jb, Adults 50+ 2015 mouth [place], every day Trazodone HCL 06/29/ Active Tablets 50mg 45tab take [place], 2014 s one-half MD Shameka tablet by mouth at bedtime Omeprazole 06/29/ Active Capsules DR 10mg 90cap take one Gag, 2014 s capsule Enedelia by mouth e, MS, every day GARNETT FIXER-C, CNM Azithromycin 12/08/ Hx Tablets 250mg 11tab 2 tabs by J02.9 Kalpesh, 2018 - s mouth Jayson, 12/18/ Celeste crane 2018 then one tab by mouth daily Benzonatate 08/27/ Hx Capsules 100mg 30cap 1 tab by Nico Muller 2018 - s mouth , 12/08/ three Camilo, 2018 times a M.D. day as needed for cough Acetaminophen 06/29/ Hx Tablets 500mg 120ta 2 by Jb 2014 - bs mouth [place], 06/29/ every 4-6 2014 hours as needed pain Chlorthalidone 06/29/ Hx Tablets 25mg 90tab 1/2 tab Jb 2014 - s by mouth [place], 06/29/ every day 2014 Diclofenac / Hx Tablets DR 50mg 1 tab Unknown Sodium 0000 - once a day with 2018 food Immunizations CPT Code Status Date Vaccine Lot # 66027 Given 02/27/2018 Tdap injection [id number] 54251 Given 02/27/2018 Influenza Virus Vaccine, Quadrivalent, 36 Mos+, [id number] 19461 Given 04/28/2017 Influenza Virus Vaccine Quadrivalent Iiv4 [id number] [id number] Given 04/24/2016 Pneumococcal Conjugate Vaccine 13 Valent For [id number] Intramuscular Use 65462 Given 04/24/2016 Influenza Virus Vaccine Split Virus Use For [id number] Individual 3Yr Older [id number] Given 04/05/2015 Influenza Vaccine (Fluzone) Age 3 And Older [id number] 16672 Given 11/30/2008 Pneumovax Injection 73212 Given 02/03/2008 Tetnus Injection Vital Signs Date Vital Result Comment 09/11/2018 8:29am BP Systolic Sitting Left Arm 114 mmHg BP Diastolic Sitting Left Arm 86 mmHg Body Temperature 97.6 F Heart Rate 72 /min Respiratory Rate 16 /min Height 61.75 inches 5'1.75" Weight 165.00 lb BMI (Body Mass Index) 30.4 kg/m2 BSA (Body Surface Area) 1.76 m2 [place] body weight in kilograms 49 kg O2 % BldC Oximetry 97 % Ra 02/27/2018 1:00pm BP Systolic Sitting Left Arm 120 mmHg BP Diastolic Sitting Left Arm 82 mmHg Body Temperature 99.2 F Heart Rate 84 /min Respiratory Rate 16 /min Height 61.75 inches 5'1.75" Weight 160.00 lb BMI (Body Mass Index) 29.5 kg/m2 BSA (Body Surface Area) 1.73 m2 [place] body weight in kilograms 49 kg O2 % BldC Oximetry 98 % Ra 12/08/2017 1:42pm BP Systolic Sitting Left Arm 135 mmHg BP Diastolic Sitting Left Arm 100 mmHg Body Temperature 99.0 F Heart Rate 70 /min Respiratory Rate 16 /min Height 61.75 inches 5'1.75" Weight 167.00 lb BMI (Body Mass Index) 30.8 kg/m2 BSA (Body Surface Area) 1.76 m2 [place] body weight in kilograms 49 kg O2 % BldC Oximetry 99 % Ra 08/29/2017 8:25am BP Systolic Sitting Right Arm 123 mmHg BP Diastolic Sitting Right Arm 83 mmHg Heart Rate 82 /min Respiratory Rate 16 /min Height 61.75 inches 5'1.75" Weight 168.00 lb BMI (Body Mass Index) 31.0 kg/m2 BSA (Body Surface Area) 1.77 m2 [place] body weight in kilograms 49 kg 08/27/2017 10:35am BP Systolic Sitting Left Arm 132 mmHg BP Diastolic Sitting Left Arm 84 mmHg Body Temperature 98.5 F Heart Rate 106 /min Height 61.75 inches 5'1.75" Weight 169.00 lb BMI (Body Mass Index) 31.2 kg/m2 BSA (Body Surface Area) 1.77 m2 [place] body weight in kilograms 49 kg O2 % BldC Oximetry 95 % 01/22/2017 9:57am BP Systolic Sitting Left Arm 126 mmHg BP Diastolic Sitting Left Arm 86 mmHg Body Temperature 98.4 F Heart Rate 68 /min Respiratory Rate 16 /min Height 61.75 inches 5'1.75" Weight 148.00 lb BMI (Body Mass Index) 27.3 kg/m2 BSA (Body Surface Area) 1.68 m2 [place] body weight in kilograms 49 kg O2 % BldC Oximetry 100 % 07/25/2016 9:23am BP Systolic 119 mmHg BP Diastolic 83 mmHg Heart Rate 72 /min Height 61.75 inches 5'1.75" Weight 139.00 lb BMI (Body Mass Index) 25.6 kg/m2 BSA (Body Surface Area) 1.63 m2 01/23/2016 9:05am BP Systolic 116 mmHg BP Diastolic 88 mmHg Heart Rate 68 /min Height 61.75 inches 5'1.75" Weight 148.00 lb BMI (Body Mass Index) 27.3 kg/m2 BSA (Body Surface Area) 1.68 m2 08/01/2015 9:13am BP Systolic 117 mmHg BP Diastolic 84 mmHg Heart Rate 74 /min Height 61.75 inches 5'1.75" Weight 165.00 lb BMI (Body Mass Index) 30.4 kg/m2 BSA (Body Surface Area) 1.76 m2 08/01/2015 9:10am Height 61.75 inches 5'1.75" Weight 165.00 lb BMI (Body Mass Index) 30.4 kg/m2 BSA (Body Surface Area) 1.76 m2 06/29/2015 8:57am BP Systolic 123 mmHg BP Diastolic 90 mmHg Heart Rate 75 /min Height 61.75 inches 5'1.75" Weight 161.00 lb BMI (Body Mass Index) 29.7 kg/m2 BSA (Body Surface Area) 1.74 m2 Results Test Date Facility Test Result H/L Range Note Comprehensive Metabolic 02/23/2018 [facility] Glucose 85 mg/dL N 74-106 1 Panel [address] [place] [address] [phone] BUN 12 mg/dL N 7-18 Creatinine 1.0 mg/dL N 0.6-1.3 Glom Filtration Rate, Estimate >60 mL/min >60 If >60 mL/min >60 2 BUN/Creat 12.0 ratio Sodium 141 mmol/L N 136-145 Potassium 4.2 mmol/L N 3.5-5.1 Chloride 109 mmol/L High 98-107 Carbon Dioxide 27 mmol/L N 21-32 Anion Gap 5 mEq/L Low 8-16 Calcium 8.7 mg/dL N 8.5-10.1 Total Protein 8.2 g/dL N 6.4-8.2 Albumin 3.6 g/dL N 3.4-5.0 Globulin 4.6 g/dL High 1.9-4.3 Alb/Glob 0.8 ratio Bilirubin,Total 0.5 mg/dL N 0.2-1.0 Sgot/Ast 20 U/L N 15-37 SGPT/Alt 25 U/L N 12-78 Alkaline Phosphatase 56 U/L N 45-117 CBS W/Automated Diff 02/23/2018 [facility] White Blood 5.0 K/uL N 3.1-10.[address] [place] [address] [phone] Red Blood Count 4.30 M/uL N 3.90-5.40 Hemoglobin 13.4 gm/dL N 11.6-15.8 Hematocrit 39.7 % N 36.0-46.1 Mean Cell Volume 92.3 fl N 80.9-99.0 Mean Corpuscular HGB 31.2 pg N 25.9-32.7 Mean Corpuscular HGB Conc 33.8 g/dL N 30.8-34.3 Platelet Count 273 K/uL N 155-360 Red Cell Distri Width SD 40.9 fl N 3-47 Red Cell Distri Width %CV 12.5 % N 11.7-14.4 Mean Platelet Volume 8.2 fL Low 8.9-12.4 Neut% 53.2 % N 40.4-72.8 Lymph % 35.0 % N 20.0-42.0 [place] % 9.2 % N 4.3-13.2 Eo% 2.0 % N 0.0-6.6 Bas% 0.6 % N 0.0-1.1 Neut# 2.66 K/uL N 1.8-7.0 Lymph # 1.75 K/uL N 1.0-4.0 [place] # 0.46 K/uL N 0.3-0.9 Eos # 0.10 K/uL N 0.0-0.5 Baso # 0.03 K/uL N 0.0-0.1 Laboratory 02/23/2018 [facility] Vitamin 41.7 ng/mL 30.0-100.0 3 test finding [address] D,25[place] [address] [phone] Throat 12/08/2017 [facility] Throat Culture BETA Abnormal 4, Culture [address] Complete HEMOLYTIC 5 [place] [address] S <SEE [phone] NOTE> Quantity MODERATE Urine Culture And 10/20/2017 [facility] Urine SEE RESULT 6, 7 Sensitivities [phone] Culture BELOW Poc Urinalysis 10/20/2017 [facility] Poc Negative Negative [phone] Glucose, Urine Poc Bilirubin, Urine Negative Negative Poc Ketone, Urine Negative Negative Poc Specific [place], Urine 1.025 N 1.010-1.030 Poc Blood, Urine 2+ Abnormal Negative Poc pH, Urine 6.0 N 5-9 Poc Protein, Urine 1+ Abnormal Negative Poc Urobilinogen, Urine 0.2 Negative Poc Nitrite, Urine Negative Negative Poc Leukocytes, Urine 3+ Abnormal Negative Poc Color, Urine Yellow Poc Clarity, Urine Slightly Cloudy 8 CBS W/Automated Diff 08/25/2017 [facility] White Blood 7.2 K/uL N 3.1-10.[address] [place] [address] [phone] Red Blood Count 4.44 M/uL N 3.90-5.40 Hemoglobin 13.5 gm/dL N 11.6-15.8 Hematocrit 40.9 % N 36.0-46.1 Mean Cell Volume 92.1 fl N 80.9-99.0 Mean Corpuscular HGB 30.4 pg N 25.9-32.7 Mean Corpuscular HGB Conc 33.0 g/dL N 30.8-34.3 Platelet Count 276 K/uL N 155-360 Red Cell Distri Width SD 41.9 fl N 3-47 Red Cell Distri Width %CV 12.9 % N 11.7-14.4 Mean Platelet Volume 8.7 fL Low 8.9-12.4 Neut% 52.9 % N 40.4-72.8 Lymph % 25.4 % N 20.0-42.0 [place] % 16.7 % High 4.3-13.2 Eo% 4.4 % N 0.0-6.6 Bas% 0.6 % N 0.0-1.1 Neut# 3.81 K/uL N 1.8-7.0 Lymph # 1.83 K/uL N 1.0-4.0 [place] # 1.20 K/uL High 0.3-0.9 Eos # 0.32 K/uL N 0.0-0.5 Baso # 0.04 K/uL N 0.0-0.1 Comprehensive Metabolic 08/25/2017 [facility] Glucose 95 mg/dL N 74-[address] [place] [address] [phone] BUN 12 mg/dL N 7-18 Creatinine 0.9 mg/dL N 0.6-1.3 Glom Filtration Rate, Estimate >60 mL/min >60 If >60 mL/min >60 10 BUN/Creat 13.3 ratio Sodium 139 mmol/L N 136-145 Potassium 4.1 mmol/L N 3.5-5.1 Chloride 109 mmol/L High 98-107 Carbon Dioxide 24 mmol/L N 21-32 Anion Gap 6 mEq/L Low 8-16 Calcium 8.9 mg/dL N 8.5-10.1 Total Protein 8.0 g/dL N 6.4-8.2 Albumin 3.4 g/dL N 3.4-5.0 Globulin 4.6 g/dL High 1.9-4.3 Alb/Glob 0.7 ratio Bilirubin,Total 0.5 mg/dL N 0.2-1.0 Sgot/Ast 20 U/L N 15-37 SGPT/Alt 23 U/L N 12-78 Alkaline Phosphatase 65 U/L N 45-117 Laboratory test finding 08/25/2017 [facility] Magnesium 2.3 mg/dL N 1.8-2.4 [address] [place], [place] [id number] [phone] Vitamin B12 522 pg/mL N 193-986 LDL Cholesterol Profile 08/25/2017 [facility] Cholesterol 124 mg/dL <200 11 [address] [place] [address] [phone] Triglycerides 78 mg/dL <150 12 HDL Cholesterol 68 mg/dL >40 13 LDL-Cholesterol 40 mg/dL < 100 14 Comprehensive Metabolic 01/16/2017 [facility] Glucose 86 mg/dL N 74-106 15 Panel [address] [place] [address] [phone] BUN 15 mg/dL N 7-18 Creatinine 0.8 mg/dL N 0.6-1.3 Glom Filtration Rate, Estimate >60 mL/min >60 If >60 mL/min >60 16 BUN/Creat 18.7 ratio Sodium 141 mmol/L N 136-145 Potassium 4.2 mmol/L N 3.5-5.1 Chloride 108 mmol/L High 98-107 Carbon Dioxide 29 mmol/L N 21-32 Anion Gap 4 mEq/L Low 8-16 Calcium 8.4 mg/dL Low 8.5-10.1 Total Protein 7.8 g/dL N 6.4-8.2 Albumin 3.3 g/dL Low 3.4-5.0 Globulin 4.5 g/dL High 1.9-4.3 Alb/Glob 0.7 ratio Bilirubin,Total 0.5 mg/dL N 0.2-1.0 Sgot/Ast 19 U/L N 15-37 SGPT/Alt 29 U/L N 12-78 Alkaline Phosphatase 63 U/L N 45-117 Laboratory test finding 01/16/2017 [facility] Magnesium 2.2 mg/dL N 1.8-2.4 [address] [place] [address] [phone] Comprehensive Metabolic 07/12/2016 [facility] Glucose 87 mg/dL N 74-106 Panel [address] [place] [address] [phone] BUN 14 mg/dL N 7-18 Creatinine 1.0 mg/dL N 0.6-1.3 Glom Filtration Rate, Estimate >60 mL/min N >60 If >60 mL/min N >60 17 BUN/Creat 14.0 ratio N Sodium 142 mmol/L N 136-145 Potassium 3.9 mmol/L N 3.5-5.1 Chloride 107 mmol/L N 98-107 Carbon Dioxide 29 mmol/L N 21-32 Anion Gap 6 mEq/L Low 8-16 Calcium 8.9 mg/dL N 8.5-10.1 Total Protein 7.7 g/dL N 6.4-8.2 Albumin 3.6 g/dL N 3.4-5.0 Globulin 4.1 g/dL N 1.9-4.3 Alb/Glob 0.9 ratio N Bilirubin,Total 0.7 mg/dL N 0.2-1.0 Sgot/Ast 18 U/L N 15-37 SGPT/Alt 30 U/L N 12-78 Alkaline Phosphatase 68 U/L N 45-117 Laboratory test finding 07/12/2016 [facility] Magnesium 2.3 mg/dL N 1.8-2.4 [address] [place] [address] [phone] Comprehensive Metabolic 01/18/2016 [facility] Glucose 85 mg/dL 74-106 Panel [address] [place] [address] [phone] BUN 12 mg/dL 7-18 Creatinine 0.9 mg/dL 0.6-1.3 Glom Filtration Rate, Estimate >60 mL/min >60 If >60 mL/min >60 18 BUN/Creat 13.3 ratio Sodium 140 mmol/L 136-145 Potassium 4.5 mmol/L 3.5-5.1 Chloride 107 mmol/L 98-107 Carbon Dioxide 27 mmol/L 21-32 Anion Gap 6 mEq/L Low 8-16 Calcium 9.2 mg/dL 8.5-10.1 Total Protein 7.5 g/dL 6.4-8.2 Albumin 3.4 g/dL 3.4-5.0 Globulin 4.1 g/dL 1.9-4.3 Alb/Glob 0.8 ratio Bilirubin,Total 0.6 mg/dL 0.2-1.0 Sgot/Ast 15 U/L 15-37 SGPT/Alt 22 U/L 12-78 Alkaline Phosphatase 56 U/L 45-117 LDL Cholesterol Profile 01/18/2016 [facility] Cholesterol 129 mg/dL <200 19 [address] [place], [place] [id number] [phone] Triglycerides 80 mg/dL <150 20 HDL Cholesterol 53 mg/dL >40 21 LDL-Cholesterol 60 mg/dL < 100 22 Comprehensive Metabolic 06/19/2015 [facility] Glucose 83 mg/dL 74-106 Panel [address] [place] [address] [phone] BUN 9 mg/dL 7-18 Creatinine 0.9 mg/dL 0.6-1.3 Glom Filtration Rate, Estimate >60 mL/min >60 If >60 mL/min >60 23 BUN/Creat 10.0 ratio Sodium 139 mmol/L 136-145 Potassium 3.9 mmol/L 3.5-5.1 Chloride 106 mmol/L 98-107 Carbon Dioxide 27 mmol/L 21-32 Anion Gap 6 mEq/L Low 8-16 Calcium 8.9 mg/dL 8.5-10.1 Total Protein 7.7 g/dL 6.4-8.2 Albumin 3.4 g/dL 3.4-5.0 Globulin 4.3 g/dL 1.9-4.3 Alb/Glob 0.8 ratio Bilirubin,Total 0.7 mg/dL 0.2-1.0 Sgot/Ast 16 U/L 15-37 SGPT/Alt 21 U/L 12-78 Alkaline Phosphatase 63 U/L 45-117 Laboratory test 06/19/2015 [facility] Vitamin 48.2 30.0-100.0 24 finding [address] [place],25-Hydroxy ng/[place] [address] [phone] 1 L40.50 E55.9 2 Note: Persistent reduction for 3 months or more in an eGFR <60 mL/min/1.73 m2 defines CKD. Patients with eGFR values >/=60 mL/min/1.73 m2 may also have CKD if evidence of persistent proteinuria is present. The original MDRD equation for estimated GFR is not valid for patients less than 18 years of age. Additional information may be found at www.kdoqi.org. 3 Vitamin D deficiency has been defined by the [place] of [employer] and an Endocrine Society practice guideline as a level of serum 25-OH vitamin D less than 20 ng/mL (1,2). The Endocrine Society went on to further define vitamin D insufficiency as a level between 21 and 29 ng/mL (2). 1. IOM ([place] of [employer]). 2010. Dietary reference intakes for calcium and D. [place]: The National Academies Press. 2. Dalia MF, [place], Jose-Isidro DOMINGUEZ, et al. Evaluation, treatment, and prevention of vitamin D deficiency: an Endocrine Society clinical practice guideline. JCEM. 2010; 96(7):1911-30. Performed at: RN - [facility] [address] [id number] Senior Network Security Architect: Keshia Alvarado MD, Phone: [phone] 4 J02.9 5 BETA HEMOLYTIC STREP NON A 6 [id number] 7 SEE RESULT BELOW Name: YEISON MUKHERJEE : [address]: Henry Henriquez MD Acct: [id number] Unit: [id number] AGE: 46 Location: [facility] Re10/20/17 SEX: F Status: DEP ER SPEC: [id number] OMLLY: 10/20/17-899 [facility] DR: Henry Henriquez MD REQ: [id number] RECD: 10/20/17-4861 STATUS: CRIS MARTINEZ DR: Shameka Magana MD _ SOURCE: URINE SPDC: ORDERED: Urine Culture COMMENTS: [id number] Procedure Result Reported Site Urine Culture Final 10/22/17- 0834 ML Organism 1 ESBL ESCHERICHIA COLI [place] Count 25-50,000 (Moderate) CFU/ML 1. ESBL ESCHERICHIA COLI [facility].I.[facility]. RX --------- ------ Ampicillin >=32 R Cefazolin >=64 R Cefepime R Ceftriaxone >=64 R Ciprofloxacin 1 S Gentamicin >=16 R Levofloxacin 1 S Meropenem <=0.25 S Nitrofurantoin <=16 S Tetracycline <=1 S Pipercillin/Tazobactam <=4 S Trimethoprim/Sulfamethoxazole >=320 R Amoxicillin/Clavulanic Acid 8 S Aztreonam R Contact the Microbiology Department for any additional antibiotic reporting. * ML - Main Lab . END OF REPORT DEPARTMENT OF PATHOLOGY, [address] [place] [address] Dustin Paez M.D. Director [facility] # [id number] 8 It Application Architect: [id number] E78.2, 10 Note: Persistent reduction for 3 months or more in an eGFR <60 mL/min/1.73 m2 defines CKD. Patients with eGFR values >/=60 mL/min/1.73 m2 may also have CKD if evidence of persistent proteinuria is present. The original MDRD equation for estimated GFR is not valid for patients less than 18 years of age. Additional information may be found at www.kdoqi.org. 11 Reference Guidelines*: Desirable: ........... < 200 mg/dL Borderline High: ..... 200-239 mg/dL High: ................ >=240 mg/dL * The National Cholesterol Education Program (NCEP) 12 Reference Guidelines*: Normal: ............. < 150 mg/dL Borderline High: .... 150-199 mg/dL High: ............... 200-499 mg/dL Very High: .......... > 500 mg/dL * Source: National Cholesterol Education Program (NCEP) 13 Reference Guidelines*: Low HDL: ..... < 40 mg/dL Normal: ..... 40-60 mg/dL Desirable: ... > 60 mg/dL *The National Cholesterol Education Program(NCEP) 14 Reference Guidelines*: Optimal:........... <100 mg/dL Near Optimal....... 100-129 mg/dL Borderline High.... 130-159 mg/dL High............... 160-189 mg/dL Very High.......... >=190 mg/dL * Source: National Cholesterol Education Program (NCEP) 15 I10 16 Note: Persistent reduction for 3 months or more in an eGFR <60 mL/min/1.73 m2 defines CKD. Patients with eGFR values >/=60 mL/min/1.73 m2 may also have CKD if evidence of persistent proteinuria is present. The original MDRD equation for estimated GFR is not valid for patients less than 18 years of age. Additional information may be found at www.kdoqi.org. 17 Note: Persistent reduction for 3 months or more in an eGFR <60 mL/min/1.73 m2 defines CKD. Patients with eGFR values >/=60 mL/min/1.73 m2 may also have CKD if evidence of persistent proteinuria is present. The original MDRD equation for estimated GFR is not valid for patients less than 18 years of age. Additional information may be found at www.kdoqi.org. 18 Note: Persistent reduction for 3 months or more in an eGFR <60 mL/min/1.73 m2 defines CKD. Patients with eGFR values >/=60 mL/min/1.73 m2 may also have CKD if evidence of persistent proteinuria is present. The original MDRD equation for estimated GFR is not valid for patients less than 18 years of age. Additional information may be found at www.kdoqi.org. 19 Reference Guidelines*: Desirable: ........... < 200 mg/dL Borderline High: ..... 200-239 mg/dL High: ................ >=240 mg/dL * The National Cholesterol Education Program (NCEP) 20 Reference Guidelines*: Normal: ............. < 150 mg/dL Borderline High: .... 150-199 mg/dL High: ............... 200-499 mg/dL Very High: .......... > 500 mg/dL * Source: National Cholesterol Education Program (NCEP) 21 Reference Guidelines*: Low HDL: ..... < 40 mg/dL Normal: ..... 40-60 mg/dL Desirable: ... > 60 mg/dL *The National Cholesterol Education Program(NCEP) 22 Reference Guidelines*: Optimal:........... <100 mg/dL Near Optimal....... 100-129 mg/dL Borderline High.... 130-159 mg/dL High............... 160-189 mg/dL Very High.......... >=190 mg/dL * Source: National Cholesterol Education Program (NCEP) 23 Note: Persistent reduction for 3 months or more in an eGFR <60 mL/min/1.73 m2 defines CKD. Patients with eGFR values >/=60 mL/min/1.73 m2 may also have CKD if evidence of persistent proteinuria is present. The original MDRD equation for estimated GFR is not valid for patients less than 18 years of age. Additional information may be found at www.kdoqi.org. 24 Vitamin D deficiency has been defined by the [place] of [employer] and an Endocrine Society practice guideline as a level of serum 25-OH vitamin D less than 20 ng/mL (1,2). The Endocrine Society went on to further define vitamin D insufficiency as a level between 21 and 29 ng/mL (2). 1. IOM ([place] of [employer]). 2010. Dietary reference intakes for calcium and D. [place]: The National Academies Press. 2. Dalia MF, [place], Jose-Isidro DOMINGUEZ, et al. Evaluation, treatment, and prevention of vitamin D deficiency: an Endocrine Society clinical practice guideline. JCEM. 2010; 96(7):1911-30. Performed at: RN - [facility] [address] [id number] Senior Network Security Architect: Keshia Alvarado MD, Phone: [phone] Procedures Date Code Description Status 07/07/2017 [id number] Mammogram Completed Encounters Type Date Location Provider Dx Diagnosis Office Visit 02/27/2018 Primary Care Jimen, L40.50 Arthropathic 1:00p Office Ro, MS, psoriasis, GARNETT FIXER-C, CNM unspecified Z23 Encounter for immunization C44.91 Basal cell carcinoma of skin, unspecified Office Visit 12/08/2017 1:30p Primary Care Nathanael, J02.9 Acute pharyngitis, Office SHANTI Corona unspecified L40.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, unspecified Office Visit 08/29/2017 8:40a Primary Care Tonny Maganaa, L40.50 Arthropathic Office psoriasis, unspecified G47.00 Insomnia, unspecified C44.91 Basal cell carcinoma of skin, unspecified Office Visit 08/27/2017 10:30a Primary Care Office Camilo Muller M.D. 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, unspecified G47.00 Insomnia, unspecified Office Visit 01/23/2016 9:00a Digna Fernandez, I10 Essential ( primary) PA-C hypertension J30.9 Allergic rhinitis, unspecified L40.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, unspecified G47.00 Insomnia, unspecified Z23 Encounter for immunization Office Visit 08/01/2015 9:00a Digna Fernandez, I10 Essential ( primary) PA-C hypertension J30.9 Allergic rhinitis, unspecified L40.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, unspecified G47.00 Insomnia, unspecified Office Visit 06/29/2015 9:30a Digna Fernandez, I10 Essential ( primary) PA-C hypertension J30.9 Allergic rhinitis, unspecified L40.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, unspecified G47.00 Insomnia, unspecified Office Visit 11/30/2008 10:45a Clyde Adhikari MD 788.41 Urinary Frequency 278.00 Obesity Unspec 280.9 Iron Deficiency Anemia Unspec V03.82 Streptococcus Pneumoniae Vaccination Spec Other Office Visit 02/03/2008 2:45p Clyde Adhikari MD 526.4 Inflammatory Jaw 280.9 Iron Deficiency Anemia Unspec V06.5 Tetanus Diphtheria (DT) Plan of Treatment Future Appointment(s):03/23/2019 8:30 am - Ro Beltran, , GARNETT FIXER-C, CNM at [facility] [id number]/11/2018 - Ro Beltran, , GARNETT FIXER-C, CNML40.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, unspecifiedComments:-- Continue POC with Retail Field Merchandiser , as Patient is doing well.C44.91 Basal cell carcinoma of skin, unspecifiedComments:--Patient to continue with database designer for F/U --MOniotr skin for [id number] Essential (primary) hypertensionNew Labs:CBC W/Automated Diff, Scheduled: 03/14/19Comprehensive Metabolic Panel, Scheduled: Glycohemoglobin A1c, Scheduled: 03/14/19LDL Cholesterol Profile, Scheduled: Vitamin D,25-Hydroxy, Scheduled: 03/14/19Comments:--[id number] Unspecified Eustachian salpingitis, right earComments:--Right ear flushed by nurse--Fluticasone nasal spray in am, Sudafed or benadryl at hs--Warm compress to earH92.01 Otalgia, right earNew Medication:Ciprodex 0.3-0.1 % - 4 drops in right ear twice a day for 7 daysComments:--Warm compress to earAllFollow up:-- Return to office in 6 months. Please get fasting labs 1 week prior to office visit.
[2018-10-06 07:54] VITALS: BP 130/90
--- NOTE | 2018-10-06 08:21 | UC ---
Eye Complaint HPI - HPI Summary HPI Summary: left eye puffiness x 2 days mild in severity , no pain , no redness, no eye discharge, no eye injury , no change in vision had some improvement by using ice, - History of Current Complaint Chief Complaint: UCEye Stated Complaint: LT EYE CONCERN Time Seen by Provider: 10/06/18 08:08 Hx Obtained From: Patient Hx Last Menstrual Period: mirena ?: No Onset/Duration: Gradual Onset, Lasting Days - 2, Still Present Timing: Constant Severity Initially: Mild Severity Currently: Mild Pain Intensity: 3 Location of Injury: Periorbital - edema left eye Aggravating Factor(s): Nothing Alleviating Factor(s): Other - ice Associated Signs And Symptoms: Positive: Swelling - left eyelid. Negative: Photophobia, Drainage (Clear), Drainage (Purulent), Vision Impairment Bilateral , Vision Impairment Right, Fever - Allergies/Home Medications Allergies/Adverse Reactions: Allergies Allergy/AdvReac Type Severity Reaction Status Date / Time bacitracin Allergy Rash Verified 10/06/18 07:48 Penicillins Allergy Unknown Verified 10/06/18 07:48 Reaction Details Sulfa (Sulfonamide Allergy Rash Verified 10/06/18 07:48 Antibiotics) Home Medications: Home Medications Levonorgestrel (Iud) [Mirena IUD] 0 mcg INTRAUTERI ONCE 10/06/18 [History Confirmed 10/06/18] diPHENhydraMINE PO* [Benadryl PO 25 MG TAB*] 25 mg PO ONCE 10/06/18 [History Confirmed 10/06/18] traZODone TAB* [Desyrel TAB*] 25 mg PO BEDTIME 10/06/18 [History Confirmed 10/06] PMH/Surg Hx/FS Hx/Imm Hx - Additional Past Medical History Additional PMH: GERD, Psoriatic Arthritis GI/ History: Gastroesophageal Reflux - Surgical History Surgical History: Yes Surgery Procedure, Year, and Place: breast reduction; lymph nodes removed - Family History Known Family History: Positive: None Negative: Diabetes - Social History Alcohol Use: Rare Substance Use Type: None Smoking Status (MU): Former Smoker Review of Systems All Other Systems Reviewed And Are Negative: Yes Constitutional: Positive: Negative Skin: Positive: Negative ENT: Positive: Negative Respiratory: Positive: Negative Is Patient Immunocompromised?: No Physical Exam Triage Information Reviewed: Yes Appearance: Well-Appearing, No Pain Distress, Well-Nourished Vital Signs: Initial Vital Signs Temp 98.4 F 10/06/18 07:50 Pulse 76 10/06/18 07:50 Resp 15 10/06/18 07:50 BP 130/90 10/06/18 07:50 Pulse Ox 100 10/06/18 07:50 Vital Signs Reviewed: Yes Eye Exam: Normal Eyes: Positive: Conjunctiva Clear, Other: - left eye : periorpital edema, puffiness, no erythema, no tenderness. Negative: Conjunctiva Inflamed, Discharge Eye Complaint Course/Dx - Differential Dx/Diagnosis Provider Diagnosis: Periorbital edema of left eye Discharge - Sign-Out/Discharge Documenting (check all that apply): Patient Departure, Post-Discharge Follow Up All imaging exams completed and their final reports reviewed: No Studies - Discharge Plan Condition: Stable Disposition: HOME Referrals: Shameka Magana MD [Primary Care Provider] - If Needed Additional Instructions: periorbital puffiness, no sign of infection , normal internal eye exam cont. with cool compresses, follow up if having eye pain, eye discharge or redness, or any change in vision - Billing Disposition and Condition Condition: STABLE Disposition: Home
== END 2018-10-06 08:20 | disposition home or self-care (01) ==
LOC: UCCORT 07:36
DX: L03.213 Periorbital cellulitis (principal); K21.9 Gastro-esophageal reflux disease without esophagitis; Z88.0 Allergy status to penicillin; Z88.2 Allergy status to sulfonamides; Z88.8 Allergy status to other drugs, medicaments and biological substances; Z87.891 Personal history of nicotine dependence
CPT/HCPCS: 99211; G0463